=== PATIENT | male | born 1980 | race Caucasian/White ===

== ENCOUNTER → 2018-10-26 | Outpatient (CLI) | payer OTHER ==
[~2018-10-26] MED LIST: CARAFATE 1 GM TA1 G1 GT; NOHOMEMEDICATIONS; PREVACID 30MG C30 M1 PO; REGLAN 10 MG TA10 MG PO
== END ==
LOC: M.RAD 15:24
DX: J15.8 Pneumonia due to other specified bacteria (principal)

== ENCOUNTER 2019-06-20 20:49 | Emergency (ER) | payer OTHER ==
[~2019-06-20] VITALS: Ht 180.3 cm; Wt 97.5 kg
[2019-06-20] MEDS ORDERED: ACYCLOVIR (21:03)
[2019-06-20] MEDS ORDERED: ACYCLOVIR 400400 MG (21:03)
[2019-06-20] MEDS ORDERED: PREDNISONE 10 M10 MG (21:04)
[2019-06-20 22:27] VITALS: BP 122/78
== END 2019-06-20 22:29 | disposition home or self-care (01) ==
LOC: M.ERS 20:49
DX: R21 Rash and other nonspecific skin eruption (principal); T50.8X5A Adverse effect of diagnostic agents, initial encounter; R03.0 Elevated blood-pressure reading, without diagnosis of hypertension; Z90.89 Acquired absence of other organs; Z88.1 Allergy status to other antibiotic agents; Z91.041 Radiographic dye allergy status

== ENCOUNTER 2020-04-06 11:04 | Emergency (ER) | payer OTHER ==
[~2020-04-06] VITALS: Ht 180.3 cm; Wt 97.5 kg
[~2020-04-06 11:04] MED LIST changes: +ACYCLOVIR; +ACYCLOVIR 400400 MG; +PREDNISONE 10 M10 MG
[2020-04-06] MEDS ORDERED: PROAIR HFA8.5 GM INH (11:12)
[2020-04-06] MEDS ORDERED: SERTRALINE HCL100 MG PO (11:13)
[2020-04-06] MEDS ORDERED: ALPRAZOLAM XR3 MG PO (11:13)
[2020-04-06 12:03] LABS: ABSOLUTE EOSINOPHILS 0.1 thou/uL (0.0-0.7); ABSOLUTE LYMPHOCYTES 1.2 thou/uL (0.8-5.3); ABSOLUTE MONOCYTES 0.6 thou/uL (0.0-1.2); ABSOLUTE NEUTROPHILS 3.9 thou/uL (1.6-8.1); BASOPHILS 0.8 %; HEMATOCRIT 46.3 % (42.0-52.0); HEMOGLOBIN 16.4 gm/dL (14.0-18.0); MCH 31.9 pg (26.0-34.0); MCHC 35.4 g/dL (28.0-37.0); MCV 89.9 fL (80.0-100.0); MONOCYTES 10.7 %; MPV 8.3 fl. (7.2-11.1); NUCLEATED RBCS 0 /100WBC; PLATELET COUNT* 236 thou/uL (150-400); POLYS 66.5 %; RBC 5.15 mil/uL (4.50-6.00); RDW-CV 13.5 % (10.5-14.5); WBC 5.8 thou/uL (4.0-11.0)
[2020-04-06 12:21] LABS: CALCIUM 8.9 mg/dL (8.5-10.1); CREATININE 0.9 mg/dL (0.6-1.3); POTASSIUM 4.4 mmol/L (3.5-5.1)
[2020-04-06 12:23] LABS: PROTIME 10.7 Seconds (9.20-11.50)
[2020-04-06 12:28] LABS: ALBUMIN 3.7 g/dL (3.4-5.0); TOTAL BILIRUBIN 0.4 mg/dL (<0.1-1.0); TOTAL PROTEIN 7.3 g/dL (6.4-8.2)
[2020-04-06 13:12] VITALS: BP 120/78
--- NOTE | 2020-04-07 15:42 | EKG ---
[place] [address] ELECTROCARDIOGRAM REPORT Name: EULA LANDON Room: 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
== END 2020-04-06 13:05 | disposition home or self-care (01) ==
LOC: M.ERS 11:04
PROVIDERS: Personal Emergency Response Attendant
DX: R06.02 Shortness of breath (principal); Z20.828 Contact with and (suspected) exposure to other viral communicable diseases; R07.9 Chest pain, unspecified; Z88.1 Allergy status to other antibiotic agents; Z88.8 Allergy status to other drugs, medicaments and biological substances

== ENCOUNTER → 2020-07-21 | Outpatient (CLI) | payer OTHER ==
[~2020-07-21] MED LIST changes: +ALPRAZOLAM XR3 MG PO; +PROAIR HFA8.5 GM INH; +SERTRALINE HCL100 MG PO
== END ==
LOC: M.RAD 10:35
PROVIDERS: ATTEND Internal Medicine
DX: J45.41 Moderate persistent asthma with (acute) exacerbation (principal)

== ENCOUNTER 2021-02-16 19:53 | Emergency (ER) | payer OTHER ==
[~2021-02-16] VITALS: Ht 180.3 cm; Wt 109.1 kg
[~2021-02-16 19:53] MED LIST changes: -ACYCLOVIR; +ACYCLOVIR PO
[2021-02-16] MEDS ORDERED: DESYREL150 MG PO (20:06)
[2021-02-16] MEDS ORDERED: SYMBICORT160 MCG/4. INH (20:07)
[2021-02-16 20:19] LABS: ABSOLUTE LYMPHOCYTES 0.8 thou/uL (0.8-5.3); ABSOLUTE MONOCYTES 0.5 thou/uL (0.0-1.2); ABSOLUTE NEUTROPHILS 4.6 thou/uL (1.6-8.1); BASOPHILS 0.8 %; HEMATOCRIT 48.8 % (42.0-52.0); HEMOGLOBIN 16.6 gm/dL (14.0-18.0); LYMPHOCYTES 13.1 %; MCH 30.6 pg (26.0-34.0); MCHC 34.1 g/dL (28.0-37.0); MCV 89.9 fL (80.0-100.0); MONOCYTES 8.3 %; MPV 8.5 fl. (7.2-11.1); NUCLEATED RBCS 0 /100WBC; PLATELET COUNT* 233 thou/uL (150-400); POLYS 77.8 %; RBC 5.43 mil/uL (4.50-6.00); RDW-CV 13.3 % (10.5-14.5); WBC 5.9 thou/uL (4.0-11.0)
[2021-02-16 20:26] LABS: URINE BILIRUBIN NEGATIVE (Negative); URINE BLOOD NEGATIVE (Negative); URINE CLARITY CLEAR; URINE COLOR YELLOW; URINE GLUCOSE-RANDOM 2+ (Negative); URINE KETONES TRACE (Negative); URINE LEUKOCYTES-REFLEX NEGATIVE (Negative); URINE NITRITE-REFLEX NEGATIVE (Negative); URINE PROTEIN NEGATIVE (Negative); URINE UROBILINOGEN 0.2 E.U./dl (0.2-1.0)
[2021-02-16 20:28] LABS: CALCIUM 9.1 mg/dL (8.5-10.1); CREATININE 1.1 mg/dL (0.6-1.3)
[2021-02-16 20:31] LABS: APTT 28.2 Seconds (25.0-31.3); PROTIME 10.5 Seconds (9.20-11.50)
[2021-02-16 20:33] LABS: AMP/METHAMP Negative (Negative); BARBITURATES Negative (Negative); BENZODIAZEPINES POSITIVE (Negative); COCAINE Negative (Negative); METHADONE Negative (Negative); OPIATES Negative (Negative); PCP Negative (Negative); THC Negative (Negative)
[2021-02-16 20:39] LABS: ALBUMIN 3.8 g/dL (3.4-5.0); TOTAL BILIRUBIN 0.3 mg/dL (<0.1-1.0); TOTAL PROTEIN 7.8 g/dL (6.4-8.2)
[2021-02-16 20:44] LABS: INFLUENZA A ANTIGEN Negative (Negative); INFLUENZA B ANTIGEN Negative (Negative)
[2021-02-16 22:28] VITALS: BP 124/85
--- NOTE | 2021-02-17 14:16 | EKG ---
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
[2021-02-17 22:06] LABS: GLYCOHEMOGLOBIN (HGB A1C) 5.3 % (4.8-5.6)
== END 2021-02-16 22:30 | disposition home or self-care (01) ==
LOC: M.ERS 19:53
PROVIDERS: Emergency Medicine; Nurse Practitioner Family
DX: U07.1 COVID-19 (principal); Z91.041 Radiographic dye allergy status; Z88.1 Allergy status to other antibiotic agents; Z90.89 Acquired absence of other organs; Z79.899 Other long term (current) drug therapy

== ENCOUNTER → 2021-03-23 | Outpatient (CLI) | payer OTHER ==
[~2021-03-23] MED LIST changes: +DESYREL150 MG PO; +SYMBICORT160 MCG/4. INH
== END ==
LOC: M.ULTRA 03-12 13:12
PROVIDERS: ATTEND Internal Medicine
DX: E04.1 Nontoxic single thyroid nodule (principal); N50.89 Other specified disorders of the male genital organs